=== PATIENT | female | born 1970 | race Caucasian/White ===

== ENCOUNTER 2017-07-02 07:54 | Emergency (ER) | payer OTHER ==
[2017-07-02 08:05] VITALS: RESP 16
--- NOTE | 2017-07-02 08:12 | EDPHY ---
H & P Time Seen by Provider: 07/02/17 08:11 HPI/ROS: 46 yo F presents c/o heavy vaginal bleeding that began at 217am this morning, soaking through a super tampon on the hour. She has always had regular periods until May of 2017 when she had an irregularly long menses, lasting almost 1 month. She was evaluated by her meter repairer helper, who found normal hormone levels no physical findings and a recommended starting control pill if irregular bleeding continued. This episode of bleeding that began last night is associated with dizziness. No chest pain, no shortness of breath, mild lower abdominal cramping pain. Review of systems As per HPI General no fever no chills no weakness HEENT no eye pain no eye discharge. 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, 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 Has 2 children ages 10 and 6 Smoking Status: Never smoked Physical Exam: 46-year-old female alert and oriented in no acute distress, slightly anxious, afebrile HEENT atraumatic normocephalic, extraocular muscles intact, anicteric Oropharynx negative for erythema negative exudate, tolerating her own secretions Neck supple no meningismus Lungs clear to auscultation bilaterally Heart regular rate and rhythm without murmur rub or gallop Abdomen nondistended normoactive bowel sounds soft nontender Back no CVA tenderness, no step-offs, no spinal tenderness Extremities no cyanosis clubbing or edema Neuro alert and oriented, no focal deficits External genitalia normal, no lesions Speculum exam os visualized, no discharge, moderate oozing of dark blood from cervix No lacerations, no masses, no lesions Bimanual no cervical motion tenderness, no adnexal tenderness Constitutional: Initial Vital Signs Temperature (C) 36.9 C 07/02/17 07:59 Heart Rate 94 07/02/17 07:59 Respiratory Rate 16 07/02/17 07:59 Blood Pressure 147/94 H 07/02/17 07:59 O2 Sat (%) 99 07/02/17 07:59 O2 Delivery Mode Room Air Allergies/Adverse Reactions: No Known Allergies Allergy (Verified 07/02/17 08:05) Home Medications: Medication Instructions Recorded Miscellaneous Medical Supply [NO 1 ea MISC AD 04/12/12 HOME MEDS] AZITHROMYCIN [Z-PACK] 250 mg PO DAILY #4 tab 09/03/14 guaiFENesin/CODEINE PHOS 5 - 10 ml PO Q4-6PRN PRN #120 ml 09/03/14 [Robitussin AC] Medical Decision Making - Diagnostics Imaging Results: Imaging Impressions Pelvic/Renal Ultrasound 07/02/17 08:35 Impression: 1. Heterogeneous echotexture in the lower uterine segment to cervix with some areas of cystic change as well as possible polypoid projection into the endometrial canal. Findings are suggestive of endometrial polyps versus polypoid fibroid or endometrial hyperplasia. Consider correlation with hysteroscopy. 2. Simple benign-appearing ovarian cyst on the right with follicular cyst on the left. Findings discussed with Carmen Jordan MD at 10:23 hour, 07/02/2017. ED Course/Re-evaluation: Patient seen and evaluated for heavy vaginal bleeding that began at 2:17 a.m.. IV established patient given 1 L normal saline Lab sent CBC with a normal hemoglobin and normal platelets BMP normal electrolytes, no acidosis PT PTT normal coagulation HCG negative Physical exam unremarkable other than moderate vaginal bleeding consistent with a heavy menses. Ultrasound pelvis Right ovarian simple cyst Endometrial polyp Impression Menorrhagia Endometrial polyp Right ovarian cyst Plan Discharge home Contact her meter repairer helper today to decide when to start the oral contraceptives And to arrange for possible hysteroscopy Differential Diagnosis: Differential diagnosis considered but not limited to: Dysfunctional uterine bleeding, menometrorrhagia, menorrhagia, idiopathic thrombocytopenic purpura, ectopic , spontaneous miscarriage Fibroid uterus, cervical polyps, cornual - Data Points Laboratory Results: Laboratory Results 07/02/17 08:30 07/02/17 08:30 07/02/17 07/02/17 07/02/17 08:30 08:30 08:30 WBC RBC Hgb Hct MCV MCH MCHC RDW Plt Count MPV Neut % (Auto) Lymph % (Auto) [place] % (Auto) Eos % (Auto) Baso % (Auto) Nucleat RBC Rel Count Absolute Neuts (auto) Absolute Lymphs (auto) Absolute Monos (auto) Absolute Eos (auto) Absolute Basos (auto) Absolute Nucleated RBC Immature Gran % Immature Gran # PT 12.4 SEC SEC (12.0-15.0) INR 0.93 (0.83-1.16) APTT 27.9 SEC SEC (23.0-38.0) Sodium 145 mEq/L mEq/L (135-145) Potassium 3.7 mEq/L mEq/L (3.5-5.2) Chloride 101 mEq/L mEq/L (97-110) Carbon Dioxide 26 mEq/l mEq/l (22-31) Anion Gap 18 mEq/L H mEq/L (8-16) BUN 11 mg/dL mg/dL (7-23) Creatinine 0.9 mg/dL mg/dL (0.6-1.0) Estimated GFR > 60 Glucose 82 mg/dL mg/dL (70-100) Calcium 10.0 mg/dL mg/dL (8.5-10.4) Beta HCG, Qual NEGATIVE 07/02/17 08:30 WBC 7.68 10^3/uL 10^3/uL (3.80-9.50) RBC 5.80 10^6/uL H 10^6/uL (4.18-5.33) Hgb 14.3 g/dL g/dL (12.6-16.3) Hct 43.0 % % (38.0-47.0) MCV 74.1 fL L fL (81.5-99.8) MCH 24.7 pg L pg (27.9-34.1) MCHC 33.3 g/dL g/dL (32.4-36.7) RDW 16.1 % H % (11.5-15.2) Plt Count 441 10^3/uL H 10^3/uL (150-400) MPV 9.2 fL fL (8.7-11.7) Neut % (Auto) 66.1 % % (39.3-74.2) Lymph % (Auto) 26.3 % % (15.0-45.0) [place] % (Auto) 6.0 % % (4.5-13.0) Eos % (Auto) 1.0 % % (0.6-7.6) Baso % (Auto) 0.3 % % (0.3-1.7) Nucleat RBC Rel Count 0.0 % % (0.0-0.2) Absolute Neuts (auto) 5.08 10^3/uL 10^3/uL (1.70-6.50) Absolute Lymphs (auto) 2.02 10^3/uL 10^3/uL (1.00-3.00) Absolute Monos (auto) 0.46 10^3/uL 10^3/uL (0.30-0.80) Absolute Eos (auto) 0.08 10^3/uL 10^3/uL (0.03-0.40) Absolute Basos (auto) 0.02 10^3/uL 10^3/uL (0.02-0.10) Absolute Nucleated RBC 0.00 10^3/uL 10^3/uL (0-0.01) Immature Gran % 0.3 % % (0.0-1.1) Immature Gran # 0.02 10^3/uL 10^3/uL (0.00-0.10) PT INR APTT Sodium Potassium Chloride Carbon Dioxide Anion Gap BUN Creatinine Estimated GFR Glucose Calcium Beta HCG, Qual Medications Given: Discontinued Medications Sodium Chloride (Ns) 1,000 mls @ 0 mls/hr IV ONCE ONE; Wide Open PRN Reason: Protocol Stop: 07/02/17 08:18 Last Admin: 07/02/17 08:15 Dose: 1,000 mls Departure - Departure Disposition: Home, Routine, Self-Care Clinical Impression: Menorrhagia with irregular cycle, Uterine polyp Condition: Good Instructions: Menorrhagia (ED), Endometrial Polyps (DC) Additional Instructions: Contact your meter repairer helper today to arrange close follow up for likely hysteroscopy. Referrals: Fany Lofton MD [Primary Care Provider] - As per Instructions
[2017-07-02] MEDS ORDERED: NS 1,000 ML IV ONE (08:17)
[2017-07-02 08:23] VITALS: TEMP 98.4
[2017-07-02 08:33] LABS: PLATELET COUNT 441 10^3/uL (150-400)
[2017-07-02 08:47] LABS: INR 0.93 (0.83-1.16); PROTIME(PATIENT) 12.4 SEC (12.0-15.0)
[2017-07-02 10:17] VITALS: BP 131/80; PULSE 71; O2SAT 96
== END 2017-07-02 11:01 | disposition home or self-care (01) ==
LOC: CED 07:54
DX: N92.1 Excessive and frequent menstruation with irregular cycle (principal); N84.0 Polyp of corpus uteri; E86.9 Volume depletion, unspecified
CPT/HCPCS: 76856-PO; 80048-PO; 84703-PO; 85025-PO; 85610-PO; 85730-PO